=== PATIENT | male | born 1995 | race Caucasian/White ===

== ENCOUNTER → 2017-11-02 | Outpatient (CLI) | payer BC ==
--- NOTE | 2017-11-06 15:31 | Holter Monitor ---
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 At peak heart rates there was some evidence of ST segment depression No symptoms reported
== END | disposition home or self-care (01) ==
LOC: C.CPL 10:59
PROVIDERS: ATTEND Physician Assistant
DX: R42 Dizziness and giddiness (principal)